=== PATIENT | female | born 1975 | race Two or more races ===

== ENCOUNTER → 2016-11-11 | Outpatient (CLI) | payer OTHER ==
--- NOTE | ~2016-11-11 | MY11 ---
[facility] A Service of [facility] / [facility] RADIOLOGY TEXT RESULTS PATIENT: MICHAEL SUE LOCATION: [facility] : 77 UNIT #: [id number] AGE: [address]: FABIANA PEREZ APRN SEX: F ORDER DR: [id number] [facility] [address] [place], [place] [address] [id number] O MR#: [id number] Acc #: [id number] NAME: MICHAEL SUE : 1975 SEX: F STUDY DATE/TIME: 11/11/2016 15:27 UNIT: [facility] ROOM: STUDY DESCRIPTION: MY Mammogram Screening Dig Sameer Attending Physician: Eve Perez M.D. Referring Physician: Eve Perez M.D. Ordering Physician: Eve Perez M.D. Primary Care Physician: Dieter Garza M.D. MEDICAL IMAGING REPORT This report is preliminary unless electronic signature is present EXAM Bilateral digital screening mammogram with CAD. DATE OF EXAM 11/11/2016 INDICATION 41-year-old female for routine screening. No reported problems. No personal or family history of breast cancer. No surgeries. TECHNIQUE CC and MLO views of breast were obtained and reviewed with an FDA-approved CAD device. COMPARISON STUDIES No comparisons. This is her baseline study. FINDINGS Breast parenchyma is heterogeneously dense degrading sensitivity of screening mammography. The pattern is symmetric. There is no dominant nodule, mass or suspicious clustered microcalcifications. IMPRESSION Negative baseline screening mammogram. 1 year followup recommended. Patients over the age of 40 are entered into a reminder system with target due date for the next mammogram. A result letter will also be sent to the patient. BIRADS: 1 Negative. [facility] A Service [facility] RADIOLOGY TEXT RESULTS PATIENT: MICHAEL SUE LOCATION: [facility] : 77 UNIT #: [id number] AGE: [address]: FABIANA PEREZ APRN SEX: F ORDER DR: Dictated by... Andrés Duque M.D. THIS IS AN ELECTRONICALLY VERIFIED REPORT Andrés Duque M.D. at 11/12/2016 7:19 AM DG/margaret TD: 11/11/2016 19:47 JOB #: [id number] MEDICAL IMAGING REPORT COPY
== END | disposition home or self-care (01) ==
LOC: CWCC 15:06
DX: Z12.31 Encounter for screening mammogram for malignant neoplasm of breast (principal)
CPT/HCPCS: G0202